=== PATIENT | male | born 2000 | race Caucasian/White ===

== ENCOUNTER 2019-10-20 11:28 | Emergency (ER) | payer SELFPAY ==
[~2019-10-20] VITALS: Ht 180.3 cm; Wt 68.2 kg
[2019-10-20] MEDS ORDERED: KETOROLAC TROMETHAMINE 10 MG TABLET PO ONE (13:00)
[2019-10-20] MEDS ORDERED: METHOCARBAMOL 500 MG TABLET PO ONE (13:00)
[2019-10-20 14:10] VITALS: BP 125/77
== END 2019-10-20 14:35 | disposition home or self-care (01) ==
LOC: EMS 11:33
DX: S29.011A Strain of muscle and tendon of front wall of thorax, initial encounter (principal); F12.90 Cannabis use, unspecified, uncomplicated; Z20.828 Contact with and (suspected) exposure to other viral communicable diseases; X50.0XXA Overexertion from strenuous movement or load, initial encounter; Y93.89 Activity, other specified; Y92.89 Other specified places as the place of occurrence of the external cause; Y99.8 Other external cause status
CPT/HCPCS: 99283; U0003